=== PATIENT | female | born 1990 | race Caucasian/White ===

== ENCOUNTER 2019-08-16 15:57 | Outpatient (CLI) | payer BC ==
--- NOTE | 2019-08-16 16:54 | ULT ---
PELVIC ULTRASOUND: 08/16/19 Transabdominal and endovaginal ultrasound of the pelvis performed. INDICATIONS: Amenorrhea. The uterus size appears normal. Uterine dimensions recorded at 7.3 x 3.2 x 4.1 cm. There is echogenicity in the lower uterine segment consistent with IUD position. The IUD does not penny ear to be positioned within the endometrial cavity. Endometrium measures 4 mm. Both ovaries are identified and appear unremarkable. Color Doppler with spectral analysis demonstrates blood flow to both ovaries. Both ovaries show anisa l appearing follicles. IMPRESSION: 1. IUD appears inadequately positioned within the lower uterine segment and possibly within the endocervical canal. The IUD does not appear to be positioned within the endometrial cavity. 2. Pelvic ultrasound otherwise unremarkable. POS: [facility]W
== END 2019-08-16 15:58 | disposition home or self-care (01) ==
LOC: SCSULT 15:57
PROVIDERS: ATTEND Internal Medicine
DX: N91.2 Amenorrhea, unspecified (principal); R53.82 Chronic fatigue, unspecified; R41.840 Attention and concentration deficit; Z97.5 Presence of (intrauterine) contraceptive device
CPT/HCPCS: 76856